=== PATIENT | male | born 1960 | race Caucasian/White ===

== ENCOUNTER 2025-03-31 14:49 | Inpatient (IN) | payer OTHER ==
[2025-03-31 15:23] LABS: MCHC 34.3 g/dl (32.3-36.5); MEAN CELL VOLUME 95.8 fl (79.0-92.2); MEAN PLT VOLUME 9.7 fl (9.4-12.4); RDW 12.7 % (12.2-16.4)
[2025-03-31 15:26] LABS: BG HCT 44.0 % (35.4-49); VENOUS BASE EXCESS -0.1 mmol/L (-2-2); VENOUS O2 SATURATION 57.3 % (70-80); VENOUS PCO2 44.6 mmHg (38-52); VENOUS PH 7.374 (7.310-7.410)
[2025-03-31 15:31] LABS: INR 1.05 (0.83-1.09); PROTHROMBIN TIME (PATIENT) 11.6 SEC (9.7-13.0)
[2025-03-31 15:33] LABS: ACTIVATED PTT 30.5 SECONDS (25.2-36.5)
[2025-03-31] MEDS: ACETAMINOPHEN 1000 MG/100 ML BAG IVPB ONE (15:34)
[2025-03-31 15:46] LABS: CO2 27 mmol/L (21-32); GLUCOSE,RANDOM 152 mg/dL (74-106)
[2025-03-31 15:50] LABS: SGOT/AST 37 U/L (15-37)
[2025-03-31 15:51] LABS: ALK PHOS 131 U/L (45-117); TOT PROT 7.0 g/dl (6.4-8.2)
[2025-03-31] MEDS ORDERED: PIPERACILLIN/TAZOB 3.375 GM 3.375 GM/50 ML BAG IVPB ONE (16:10)
[2025-03-31] MEDS ORDERED: VANCOMYCIN 1 GM PREMIX (F) 1 GM/200 ML BAG ONE (16:10)
[2025-03-31] MEDS: PIPERACILLIN/TAZOB 3.375 GM 3.375 GM in DEXTROSE 5%-WATER - 50 ML IVPB ONE (16:25)
[2025-03-31 16:30] LABS: LACTIC ACID 2.6 mmol/L (0.4-2.0)
[2025-03-31] MEDS ORDERED: AZITHROMYCIN IVPB 500 MG/250 ML BAG IVPB ONE (16:50)
[2025-03-31] MEDS: VANCOMYCIN 1,000 MG in DEXTROSE 5%-WATER - 250 ML IVPB ONE (17:24)
[2025-03-31 18:08] LABS: HCV DIAGNOSTIC IN-HOUSE W/RFLX NON-REACTIVE (NONREACTIVE); HIV INTERPRETATION NEGATIVE (NEGATIVE)
[2025-03-31] MEDS ORDERED: NICARDIPINE 25 MG in DEXTROSE 5%-WATER - 240 ML IVPB SCH (18:30)
[2025-03-31] MEDS: AZITHROMYCIN IVPB 500 MG in DEXTROSE 5%-WATER - 250 ML IVPB ONE (18:31)
[2025-03-31] MEDS: SODIUM CHLORIDE 500 ML IV STA (18:37)
[2025-03-31 18:42] LABS: CREATININE 8.6 mg/dL (0.55-1.3); SGPT/ALT 91 U/L (13-61)
[2025-03-31] MEDS ORDERED: levETIRAcetam 500 MG/5 ML INJECTION VIAL IVPB ONE (19:39)
[2025-03-31] MEDS: levETIRAcetam 500 MG/5 ML INJECTION VIAL IVPB ONE (19:40)
[2025-03-31 20:36] LABS: LACTIC ACID 2.6 mmol/L (0.4-2.0)
[2025-03-31] MEDS: NICARDIPINE 25 MG in DEXTROSE 5%-WATER - 240 ML IVPB SCH (23:00)
[2025-03-31] MEDS: CHLORHEXIDINE GLUCONATE 4% CLEANSER FOR DECOLONIZATION TP SCH (23:18)
[2025-03-31] MEDS: MUPIROCIN 2% TOPICAL OINTMENT FOR DECOLONIZATION NS SCH (23:18)
[2025-03-31] MEDS ORDERED: ACETAMINOPHEN INJECTION 100 ML ONE (23:19)
[2025-04-01 01:28] LABS: CO2 26 mmol/L (21-32); GLUCOSE,RANDOM 133 mg/dL (74-106)
[2025-04-01 01:31] LABS: SGOT/AST 37 U/L (15-37); SGPT/ALT 73 U/L (13-61)
[2025-04-01 01:33] LABS: ALK PHOS 113 U/L (45-117); TOT PROT 6.5 g/dl (6.4-8.2)
[2025-04-01 01:54] LABS: CREATININE 8.7 mg/dL (0.55-1.3)
[2025-04-01 06:35] LABS: ABSOLUTE IMMATURE GRANULOCYTES 0.14 x10^3/uL (0.0-0.031); BASOPHILS # 0.04 x10^3/uL (0.01-0.08); EOSINOPHIL % 0.1 % (0.8-7.0); EOSINOPHILS # 0.01 x10^3/uL (0.04-0.54); MCHC 34.1 g/dl (32.3-36.5); MEAN CELL VOLUME 96.9 fl (79.0-92.2); MEAN PLT VOLUME 9.7 fl (9.4-12.4); MONOCYTE # 1.04 x10^3/uL (0.30-0.82); MONOCYTE % 5.2 % (5.3-12.2); RDW 12.9 % (12.2-16.4)
[2025-04-01 06:53] LABS: CO2 25.0 mmol/L (21-32); GLUCOSE,RANDOM 140.0 mg/dL (74-106)
[2025-04-01 06:56] LABS: SGOT/AST 33.0 U/L (15-37); SGPT/ALT 69.0 U/L (13-61)
[2025-04-01 06:58] LABS: TOT PROT 6.3 g/dl (6.4-8.2)
[2025-04-01 07:00] LABS: ALK PHOS 106.0 U/L (45-117)
[2025-04-01] MEDS: ACETAMINOPHEN 1000 MG/100 ML BAG IVPB ONE (07:13)
[2025-04-01] MEDS ORDERED: PIPERACILLIN/TAZOB 3.375 GM 3.375 GM in DEXTROSE 5%-WATER - 50 ML IVPB SCH ×2 (07:15→10:00)
[2025-04-01 07:23] LABS: CREATININE 9.2 mg/dL (0.55-1.3)
[2025-04-01] MEDS ORDERED: LORazepam 2 MG/ML SDV VIAL ONE (08:48)
[2025-04-01] MEDS: LORazepam 2 MG/ML SDV VIAL IVPUSH ONE (09:00)
[2025-04-01] MEDS: PIPERACILLIN/TAZOB 2.25 GM 2.25 GM in DEXTROSE 5%-WATER - 50 ML IVPB SCH (09:03)
[2025-04-01 09:43] LABS: INR 1.13 (0.83-1.09); PROTHROMBIN TIME (PATIENT) 12.3 SEC (9.7-13.0)
[2025-04-01 09:45] LABS: ACTIVATED PTT 27.7 SECONDS (25.2-36.5)
[2025-04-01] MEDS ORDERED: SODIUM CHLORIDE 250 ML IV PRN (10:13)
[2025-04-01] MEDS: NICARDIPINE 25 MG in DEXTROSE 5%-WATER - 240 ML IVPB SCH (10:15)
[2025-04-01] MEDS: levETIRAcetam 500 MG/5 ML INJECTION VIAL IVPB ONE ×2 (10:52→12:32)
[2025-04-01] MEDS: HEPARIN NA (PORCINE) 5,000 UNITS/ML 1ML VIAL SQ SCH (10:52)
[2025-04-01] MEDS: COLLAGENASE CLOSTRIDIUM HIST. 30 GRAMS TUBE TP SCH (13:23)
[2025-04-01] MEDS: ACETAMINOPHEN 1000 MG/100 ML BAG IVPB PRN (13:24)
[2025-04-01 16:23] LABS: HCV DIAGNOSTIC IN-HOUSE W/RFLX NON-REACTIVE (NONREACTIVE)
[2025-04-01 18:19] LABS: HEPATITIS B SURF AG NON-MATERN NON-REACTIVE (NONREACTIVE)
[2025-04-01 20:56] LABS: ALLENS TEST POSITIVE; ARTERIAL BLD GAS O2 SATURATION 96.3 % (95-98); ARTERIAL BLOOD GAS BASE EXCESS 3.3 mmol/L (-2-2); ARTERIAL BLOOD GAS PCO2 49.80 mmHg (35-45); ARTERIAL BLOOD GAS PO2 86.5 mmHg (80-100); BG HCT 34.0 % (35.4-49)
[2025-04-01 20:57] LABS: VENT MODE A/C; VENT RATE 12
[2025-04-01] MEDS: DEXMEDETOMIDINE PREMIX 400 MCG/100 ML BAG IVPB SCH (21:14)
[2025-04-01 21:49] LABS: ABSOLUTE IMMATURE GRANULOCYTES 0.08 x10^3/uL (0.0-0.031); BASOPHILS # 0.07 x10^3/uL (0.01-0.08); EOSINOPHIL % 0.4 % (0.8-7.0); EOSINOPHILS # 0.07 x10^3/uL (0.04-0.54); MCHC 33.8 g/dl (32.3-36.5); MEAN CELL VOLUME 97.6 fl (79.0-92.2); MEAN PLT VOLUME 9.6 fl (9.4-12.4); MONOCYTE # 1.30 x10^3/uL (0.30-0.82); MONOCYTE % 8.2 % (5.3-12.2); RDW 13.1 % (12.2-16.4)
[2025-04-01] MEDS: levETIRAcetam 500 MG/5 ML INJECTION VIAL IVPB SCH (22:24)
[2025-04-01] MEDS: ATORVASTATIN CA 40 MG TABLET (FP) PEG SCH (22:25)
[2025-04-01] MEDS: CARVEDILOL 6.25 MG TABLET (FP) PEG SCH (22:25)
[2025-04-01 22:42] LABS: CO2 27.0 mmol/L (21-32); GLUCOSE,RANDOM 145.0 mg/dL (74-106)
[2025-04-01 22:45] LABS: SGOT/AST 79.0 U/L (15-37); SGPT/ALT 68.0 U/L (13-61)
[2025-04-01 22:46] LABS: CREATININE 5.5 mg/dL (0.55-1.3)
[2025-04-01 22:47] LABS: TOT PROT 6.7 g/dl (6.4-8.2)
[2025-04-01 22:48] LABS: ALK PHOS 101.0 U/L (45-117)
[2025-04-02] MEDS: SODIUM CHLORIDE FOR INHALATION 3 ML VIAL.NEB IH SCH
[2025-04-02] MEDS ORDERED: NOREPINEPHRINE BITARTRATE 4 MG/4 ML ML IV ONE (00:35)
[2025-04-02] MEDS: NOREPINEPHRINE BITARTRATE 4,000 MCG in DEXTROSE 5%-WATER - 496 ML IV SCH (00:38)
[2025-04-02] MEDS: VANCOMYCIN/WATER FOR INJ (PEG) 1,000 MG/200 ML BAG IVPB ONE (01:51)
[2025-04-02 06:08] LABS: ARTERIAL BLD GAS O2 SATURATION 99.7 % (95-98); ARTERIAL BLOOD GAS BASE EXCESS 1.6 mmol/L (-2-2); ARTERIAL BLOOD GAS PCO2 35.50 mmHg (35-45); ARTERIAL BLOOD GAS PO2 263.8 mmHg (80-100); BG HCT 20.0 % (35.4-49); O2 CONTENT 1.00 % vol
[2025-04-02 06:11] LABS: ALLENS TEST POSITIVE
[2025-04-02 06:12] LABS: VENT MODE A/C; VENT RATE 12
[2025-04-02 06:27] LABS: CO2 27.0 mmol/L (21-32); GLUCOSE,RANDOM 129.0 mg/dL (74-106)
[2025-04-02 06:29] LABS: CREATININE 6.2 mg/dL (0.55-1.3); SGOT/AST 69.0 U/L (15-37); SGPT/ALT 59.0 U/L (13-61)
[2025-04-02 06:31] LABS: TOT PROT 5.5 g/dl (6.4-8.2)
[2025-04-02 06:32] LABS: ALK PHOS 79.0 U/L (45-117)
[2025-04-02 06:46] LABS: ABSOLUTE IMMATURE GRANULOCYTES 0.08 x10^3/uL (0.0-0.031); BASOPHILS # 0.06 x10^3/uL (0.01-0.08); EOSINOPHIL % 0.9 % (0.8-7.0); EOSINOPHILS # 0.14 x10^3/uL (0.04-0.54); MCHC 33.5 g/dl (32.3-36.5); MEAN CELL VOLUME 98.5 fl (79.0-92.2); MEAN PLT VOLUME 9.8 fl (9.4-12.4); MONOCYTE # 1.33 x10^3/uL (0.30-0.82); MONOCYTE % 8.8 % (5.3-12.2); RDW 13.1 % (12.2-16.4)
[2025-04-02] MEDS: MULTIVIT-MINERALS ORAL LIQUID PEG SCH (09:23)
[2025-04-02] MEDS: amLODIPine BESYLATE 10 MG TABLET (FP) PEG SCH (09:24)
[2025-04-02] MEDS: THIAMINE 100 MG TABLET NGT SCH (09:24)
[2025-04-02] MEDS: SODIUM CHLORIDE 1,000 ML IV STA (10:51)
[2025-04-02] MEDS: LACTATED RINGERS SOLUTION 1000 ML INFUS.BAG IV ONE (12:52)
[2025-04-02] MEDS: CARVEDILOL 6.25 MG TABLET (FP) PEG ONE (17:16)
[2025-04-02] MEDS: PIPERACILLIN/TAZOB 2.25 GM 2.25 GM in DEXTROSE 5%-WATER - 50 ML IVPB SCH (17:21)
[2025-04-02] MEDS ORDERED: CARVEDILOL 6.25 MG TABLET (FP) PEG ONE (18:16)
[2025-04-02] MEDS ORDERED: SODIUM CHLORIDE 250 ML IV PRN (19:46)
[2025-04-02] MEDS ORDERED: ACETAMINOPHEN 1000 MG/100 ML BAG IVPB ONE (23:00)
[2025-04-03 06:41] LABS: ABSOLUTE IMMATURE GRANULOCYTES 0.03 x10^3/uL (0.0-0.031); BASOPHILS # 0.06 x10^3/uL (0.01-0.08); EOSINOPHIL % 7.3 % (0.8-7.0); EOSINOPHILS # 0.74 x10^3/uL (0.04-0.54); MCHC 32.8 g/dl (32.3-36.5); MEAN CELL VOLUME 99.6 fl (79.0-92.2); MEAN PLT VOLUME 9.9 fl (9.4-12.4); MONOCYTE # 0.76 x10^3/uL (0.30-0.82); MONOCYTE % 7.5 % (5.3-12.2); RDW 12.7 % (12.2-16.4)
[2025-04-03 07:06] LABS: CO2 25 mmol/L (21-32); GLUCOSE,RANDOM 93 mg/dL (74-106)
[2025-04-03 07:09] LABS: SGPT/ALT 68 U/L (13-61)
[2025-04-03 07:10] LABS: SGOT/AST 80 U/L (15-37)
[2025-04-03 07:11] LABS: TOT PROT 5.1 g/dl (6.4-8.2)
[2025-04-03 07:12] LABS: ALK PHOS 72 U/L (45-117)
[2025-04-03 07:15] LABS: CREATININE 7.6 mg/dL (0.55-1.3)
[2025-04-03 09:33] LABS: IRON SERUM 42 ug/dL (50-175)
[2025-04-03 09:37] LABS: LDH 261 U/L (87-246)
[2025-04-03] MEDS: EPOETIN ALFA-EPBX 3,000 UNIT/ML VIAL SQ ONE (10:40)
[2025-04-03] MEDS: ACETAMINOPHEN 650 MG/20.3 ML ORAL SOLUTION (CUPS) GT PRN (11:40)
[2025-04-03] MEDS ORDERED: ACETYLCYSTEINE 20% 200MG/ML 4 ML VIAL *FOR ORAL / INH USE ONLY ONE (18:02)
[2025-04-03] MEDS ORDERED: ALBUTEROL SO4 0.083% IH SOL 2.5 MG/3 ML VIAL.NEB. NEB ONE (18:03)
[2025-04-03] MEDS: ALBUTEROL SO4 0.083% IH SOL 2.5 MG/3 ML VIAL.NEB. NEB ONE (18:10)
[2025-04-03] MEDS: ACETYLCYSTEINE 20% 200MG/ML 4 ML VIAL *FOR ORAL / INH USE ONLY NEB ONE (18:10)
[2025-04-03] MEDS: levETIRAcetam 500 MG/5 ML INJECTION VIAL IVPB SCH (21:10)
[2025-04-03] MEDS: ALBUTEROL SO4 2.5/IPRATROPIUM 0.5 INH SOL 3 ML VIAL.NEB. NEB PRN (23:25)
[2025-04-03] MEDS: SODIUM CHLORIDE FOR INHALATION 3 ML VIAL.NEB IH PRN (23:27)
[2025-04-04 00:22] LABS: ARTERIAL BLD GAS O2 SATURATION 95.0 % (95-98); ARTERIAL BLOOD GAS BASE EXCESS 3.4 mmol/L (-2-2); ARTERIAL BLOOD GAS PCO2 40.30 mmHg (35-45); ARTERIAL BLOOD GAS PO2 71.2 mmHg (80-100); BG HCT 27.0 % (35.4-49)
[2025-04-04 00:23] LABS: ALLENS TEST POSITIVE
[2025-04-04] MEDS ORDERED: RAPID SEQUENCE INTUBATION KIT NR ONE ×2 (02:57→03:18)
[2025-04-04] MEDS ORDERED: PROPOFOL 1,000,000 MCG/100 ML VIAL ONE (03:01)
[2025-04-04] MEDS: ETOMIDATE 20 MG/10 ML VIAL IVPUSH ONE (03:30)
[2025-04-04] MEDS: ROCURONIUM BROMIDE 50 MG/5 ML VIAL IV ONE ×2 (03:30→20:40)
[2025-04-04] MEDS: PROPOFOL 200 MG/20 ML VIAL IVPUSH ONE (03:30)
[2025-04-04] MEDS: PROPOFOL 1,000,000 MCG/100 ML VIAL IVPB SCH (03:30)
[2025-04-04] MEDS ORDERED: NOREPINEPHRINE BITARTRATE 4 MG/4 ML ML IV ONE (06:31)
[2025-04-04] MEDS: NOREPINEPHRINE BITARTRATE 4,000 MCG in DEXTROSE 5%-WATER - 496 ML IV SCH (06:32)
[2025-04-04 06:53] LABS: ABSOLUTE IMMATURE GRANULOCYTES 0.08 x10^3/uL (0.0-0.031); BASOPHILS # 0.04 x10^3/uL (0.01-0.08); EOSINOPHIL % 1.4 % (0.8-7.0); EOSINOPHILS # 0.18 x10^3/uL (0.04-0.54); MCHC 33.7 g/dl (32.3-36.5); MEAN CELL VOLUME 98.9 fl (79.0-92.2); MEAN PLT VOLUME 9.7 fl (9.4-12.4); MONOCYTE # 0.77 x10^3/uL (0.30-0.82); MONOCYTE % 6.0 % (5.3-12.2); RDW 12.6 % (12.2-16.4)
[2025-04-04 07:00] LABS: ARTERIAL BLD GAS O2 SATURATION 93.6 % (95-98); ARTERIAL BLOOD GAS BASE EXCESS 2.9 mmol/L (-2-2); ARTERIAL BLOOD GAS PCO2 40.70 mmHg (35-45); ARTERIAL BLOOD GAS PO2 65.5 mmHg (80-100); BG HCT 18.0 % (35.4-49)
[2025-04-04 07:01] LABS: VENT MODE A/C; VENT RATE 12
[2025-04-04 07:16] LABS: CO2 28.0 mmol/L (21-32); GLUCOSE,RANDOM 109.0 mg/dL (74-106)
[2025-04-04 07:19] LABS: CREATININE 5.0 mg/dL (0.55-1.3); SGOT/AST 67.0 U/L (15-37); SGPT/ALT 63.0 U/L (13-61)
[2025-04-04 07:20] LABS: TOT PROT 5.3 g/dl (6.4-8.2)
[2025-04-04 07:21] LABS: ALK PHOS 79.0 U/L (45-117)
[2025-04-04] MEDS: SODIUM CHLORIDE NASAL SPRAY 44 ML BOTTLE NS SCH (09:36)
[2025-04-04] MEDS: OXYMETAZOLINE 0.05% NASAL SOLUTION 15 ML BOTTLE NS SCH (09:37)
[2025-04-04 13:58] VITALS: BMI 24.3
[2025-04-04 17:50] LABS: MCHC 33.5 g/dl (32.3-36.5); MEAN CELL VOLUME 99.6 fl (79.0-92.2); MEAN PLT VOLUME 9.9 fl (9.4-12.4); RDW 12.6 % (12.2-16.4)
[2025-04-04 18:07] LABS: INR 1.35 (0.83-1.09); PROTHROMBIN TIME (PATIENT) 14.8 SEC (9.7-13.0)
[2025-04-04 18:11] LABS: ACTIVATED PTT 25.2 SECONDS (25.2-36.5)
[2025-04-04] MEDS: levETIRAcetam 500 MG/5 ML INJECTION VIAL IVPB SCH (20:40)
[2025-04-05 00:13] LABS: MCHC 33.3 g/dl (32.3-36.5); MEAN CELL VOLUME 99.6 fl (79.0-92.2); MEAN PLT VOLUME 9.8 fl (9.4-12.4); RDW 12.7 % (12.2-16.4)
[2025-04-05 07:34] LABS: ABSOLUTE IMMATURE GRANULOCYTES 0.03 x10^3/uL (0.0-0.031); BASOPHILS # 0.06 x10^3/uL (0.01-0.08); EOSINOPHIL % 5.0 % (0.8-7.0); EOSINOPHILS # 0.44 x10^3/uL (0.04-0.54); MCHC 32.6 g/dl (32.3-36.5); MEAN CELL VOLUME 99.6 fl (79.0-92.2); MEAN PLT VOLUME 9.9 fl (9.4-12.4); MONOCYTE # 0.64 x10^3/uL (0.30-0.82); MONOCYTE % 7.3 % (5.3-12.2); RDW 12.6 % (12.2-16.4)
[2025-04-05] MEDS: SODIUM CHLORIDE 250 ML IV PRN (07:45)
[2025-04-05 08:01] LABS: GLUCOSE,RANDOM 129.0 mg/dL (74-106)
[2025-04-05 08:02] LABS: CO2 27.0 mmol/L (21-32)
[2025-04-05 08:04] LABS: CREATININE 6.4 mg/dL (0.55-1.3); SGOT/AST 51.0 U/L (15-37); SGPT/ALT 52.0 U/L (13-61)
[2025-04-05 08:05] LABS: TOT PROT 4.9 g/dl (6.4-8.2)
[2025-04-05 08:06] LABS: ALK PHOS 77.0 U/L (45-117)
[2025-04-05] MEDS: EPOETIN ALFA-EPBX 4,000 UNIT/ML VIAL IVPUSH ONE (10:57)
[2025-04-05] MEDS ORDERED: NOREPINEPHRINE BITARTRATE 4 MG/4 ML ML IV ONE (13:42)
[2025-04-06 06:35] LABS: ABSOLUTE IMMATURE GRANULOCYTES 0.08 x10^3/uL (0.0-0.031); BASOPHILS # 0.04 x10^3/uL (0.01-0.08); EOSINOPHIL % 1.6 % (0.8-7.0); EOSINOPHILS # 0.15 x10^3/uL (0.04-0.54); MCHC 32.9 g/dl (32.3-36.5); MEAN CELL VOLUME 99.1 fl (79.0-92.2); MEAN PLT VOLUME 10.0 fl (9.4-12.4); MONOCYTE # 0.65 x10^3/uL (0.30-0.82); MONOCYTE % 6.9 % (5.3-12.2); RDW 12.8 % (12.2-16.4)
[2025-04-06 07:08] LABS: CO2 30.0 mmol/L (21-32); GLUCOSE,RANDOM 129.0 mg/dL (74-106)
[2025-04-06 07:11] LABS: CREATININE 4.5 mg/dL (0.55-1.3); SGOT/AST 58.0 U/L (15-37); SGPT/ALT 52.0 U/L (13-61)
[2025-04-06 07:12] LABS: TOT PROT 5.3 g/dl (6.4-8.2)
[2025-04-06 07:14] LABS: ALK PHOS 84.0 U/L (45-117)
[2025-04-06] MEDS: ENALAPRILAT DIHYDRATE 1.25 MG/1 ML VIAL IVPB ONE (08:24)
[2025-04-06] MEDS: KCL 10 MEQ IVPB 10 MEQ/100 ML INFUS.BAG IVPB SCH (08:25)
[2025-04-06] MEDS: POTASSIUM CHLORIDE ORAL LIQUID 20 MEQ/15 ML GT ONE (10:37)
[2025-04-06] MEDS: ALBUTEROL SO4 0.083% IH SOL 2.5 MG/3 ML VIAL.NEB. NEB SCH (13:08)
[2025-04-06] MEDS: ACETYLCYSTEINE 20% 200MG/ML 4 ML VIAL *FOR ORAL / INH USE ONLY NEB SCH (13:08)
[2025-04-06] MEDS: FLUDROCORTISONE ACETATE 0.1 MG TABLET (FP) PO SCH (17:14)
[2025-04-06] MEDS: METOPROLOL TARTRATE 5 MG/5 ML VIAL IVPUSH ONE (19:30)
[2025-04-06] MEDS: ACETAMINOPHEN 1000 MG/100 ML BAG IVPB PRN (20:00)
[2025-04-07 06:29] LABS: ABSOLUTE IMMATURE GRANULOCYTES 0.04 x10^3/uL (0.0-0.031); BASOPHILS # 0.03 x10^3/uL (0.01-0.08); EOSINOPHIL % 2.8 % (0.8-7.0); EOSINOPHILS # 0.23 x10^3/uL (0.04-0.54); MCHC 31.7 g/dl (32.3-36.5); MEAN CELL VOLUME 100.9 fl (79.0-92.2); MEAN PLT VOLUME 10.1 fl (9.4-12.4); MONOCYTE # 0.65 x10^3/uL (0.30-0.82); MONOCYTE % 8.0 % (5.3-12.2); RDW 13.0 % (12.2-16.4)
[2025-04-07 06:51] LABS: CO2 28.0 mmol/L (21-32); GLUCOSE,RANDOM 120.0 mg/dL (74-106)
[2025-04-07 06:54] LABS: CREATININE 6.1 mg/dL (0.55-1.3); SGOT/AST 57.0 U/L (15-37); SGPT/ALT 49.0 U/L (13-61)
[2025-04-07 06:56] LABS: TOT PROT 5.0 g/dl (6.4-8.2)
[2025-04-07 06:57] LABS: ALK PHOS 79.0 U/L (45-117)
[2025-04-07 16:49] LABS: MCHC 32.9 g/dl (32.3-36.5); MEAN CELL VOLUME 98.5 fl (79.0-92.2); MEAN PLT VOLUME 9.3 fl (9.4-12.4); RDW 14.6 % (12.2-16.4)
[2025-04-07] MEDS: SODIUM CHLORIDE 1,000 ML IV SCH (21:19)
[2025-04-08 06:31] LABS: ABSOLUTE IMMATURE GRANULOCYTES 0.10 x10^3/uL (0.0-0.031); BASOPHILS # 0.04 x10^3/uL (0.01-0.08); EOSINOPHIL % 3.4 % (0.8-7.0); EOSINOPHILS # 0.29 x10^3/uL (0.04-0.54); MCHC 33.3 g/dl (32.3-36.5); MEAN CELL VOLUME 98.1 fl (79.0-92.2); MEAN PLT VOLUME 9.9 fl (9.4-12.4); MONOCYTE # 0.71 x10^3/uL (0.30-0.82); MONOCYTE % 8.3 % (5.3-12.2); RDW 15.3 % (12.2-16.4)
[2025-04-08 06:46] LABS: INR 1.26 (0.83-1.09); PROTHROMBIN TIME (PATIENT) 13.7 SEC (9.7-13.0)
[2025-04-08 06:49] LABS: ACTIVATED PTT 28.0 SECONDS (25.2-36.5)
[2025-04-08 06:54] LABS: CO2 27.0 mmol/L (21-32)
[2025-04-08 06:55] LABS: GLUCOSE,RANDOM 119.0 mg/dL (74-106)
[2025-04-08 06:57] LABS: SGPT/ALT 63.0 U/L (13-61)
[2025-04-08 06:58] LABS: CREATININE 7.3 mg/dL (0.55-1.3); SGOT/AST 60.0 U/L (15-37)
[2025-04-08 06:59] LABS: TOT PROT 5.0 g/dl (6.4-8.2)
[2025-04-08 07:00] LABS: ALK PHOS 84.0 U/L (45-117)
[2025-04-08] MEDS ORDERED: SODIUM CHLORIDE 250 ML IV PRN (09:00)
[2025-04-08] MEDS: EPOETIN ALFA-EPBX 4,000 UNIT/ML VIAL IVPUSH ONE (10:34)
[2025-04-08] MEDS: PANTOPRAZOLE SODIUM 40 MG VIAL IVPUSH SCH (11:46)
[2025-04-09 06:41] LABS: EOSINOPHIL % 5.2 % (0.8-7.0); EOSINOPHILS # 0.40 x10^3/uL (0.04-0.54); MCHC 32.3 g/dl (32.3-36.5); MEAN CELL VOLUME 98.4 fl (79.0-92.2); MEAN PLT VOLUME 9.9 fl (9.4-12.4); MONOCYTE # 0.73 x10^3/uL (0.30-0.82); MONOCYTE % 9.5 % (5.3-12.2); RDW 14.6 % (12.2-16.4)
[2025-04-09 06:42] LABS: ABSOLUTE IMMATURE GRANULOCYTES 0.11 x10^3/uL (0.0-0.031); BASOPHILS # 0.04 x10^3/uL (0.01-0.08)
[2025-04-09 06:47] LABS: CO2 29.0 mmol/L (21-32); GLUCOSE,RANDOM 103.0 mg/dL (74-106)
[2025-04-09 06:50] LABS: CREATININE 4.5 mg/dL (0.55-1.3)
[2025-04-09 06:51] LABS: SGOT/AST 76.0 U/L (15-37); SGPT/ALT 86.0 U/L (13-61)
[2025-04-09 06:52] LABS: TOT PROT 5.2 g/dl (6.4-8.2)
[2025-04-09 06:53] LABS: ALK PHOS 83.0 U/L (45-117)
[2025-04-09] MEDS: ALBUMIN HUMAN 5% 500 ML IV SOLUTION IV ONE (07:53)
[2025-04-10] MEDS ORDERED: PIPERACILLIN/TAZOBACTAM 2.25 GM VIAL IVPB ONE (01:06)
[2025-04-10 06:44] LABS: ABSOLUTE IMMATURE GRANULOCYTES 0.08 x10^3/uL (0.0-0.031); BASOPHILS # 0.05 x10^3/uL (0.01-0.08); EOSINOPHIL % 5.1 % (0.8-7.0); EOSINOPHILS # 0.38 x10^3/uL (0.04-0.54); MCHC 32.9 g/dl (32.3-36.5); MEAN CELL VOLUME 98.8 fl (79.0-92.2); MEAN PLT VOLUME 9.8 fl (9.4-12.4); MONOCYTE # 0.67 x10^3/uL (0.30-0.82); MONOCYTE % 8.9 % (5.3-12.2); RDW 13.9 % (12.2-16.4)
[2025-04-10 07:05] LABS: CO2 27.0 mmol/L (21-32); GLUCOSE,RANDOM 111.0 mg/dL (74-106)
[2025-04-10 07:08] LABS: CREATININE 5.9 mg/dL (0.55-1.3); SGOT/AST 66.0 U/L (15-37); SGPT/ALT 87.0 U/L (13-61)
[2025-04-10 07:10] LABS: TOT PROT 5.0 g/dl (6.4-8.2)
[2025-04-10 07:11] LABS: ALK PHOS 82.0 U/L (45-117)
[2025-04-10] MEDS ORDERED: EPOETIN ALFA-EPBX 4,000 UNIT/ML VIAL SQ ONE (09:09)
[2025-04-10] MEDS ORDERED: SODIUM CHLORIDE 250 ML IV PRN (09:09)
[2025-04-10] MEDS: EPOETIN ALFA-EPBX 4,000 UNIT/ML VIAL IVPUSH ONE (09:30)
[2025-04-10 16:11] LABS: C-ANCA <1:20 titer (Neg:<1:20)
[2025-04-11 06:13] LABS: ABSOLUTE IMMATURE GRANULOCYTES 0.09 x10^3/uL (0.0-0.031); BASOPHILS # 0.06 x10^3/uL (0.01-0.08); EOSINOPHIL % 3.2 % (0.8-7.0); EOSINOPHILS # 0.28 x10^3/uL (0.04-0.54); MCHC 32.1 g/dl (32.3-36.5); MEAN CELL VOLUME 99.3 fl (79.0-92.2); MEAN PLT VOLUME 9.5 fl (9.4-12.4); MONOCYTE # 0.74 x10^3/uL (0.30-0.82); MONOCYTE % 8.4 % (5.3-12.2); RDW 13.5 % (12.2-16.4)
[2025-04-11 06:54] LABS: CO2 26.0 mmol/L (21-32); GLUCOSE,RANDOM 113.0 mg/dL (74-106)
[2025-04-11 07:08] LABS: ALK PHOS 95.0 U/L (45-117); CREATININE 4.3 mg/dL (0.55-1.3); SGOT/AST 60.0 U/L (15-37); SGPT/ALT 87.0 U/L (13-61); TOT PROT 5.6 g/dl (6.4-8.2)
[2025-04-11] MEDS ORDERED: SODIUM CHLORIDE 250 ML IV PRN (12:18)
[2025-04-12 08:28] LABS: ABSOLUTE IMMATURE GRANULOCYTES 0.10 x10^3/uL (0.0-0.031); BASOPHILS # 0.05 x10^3/uL (0.01-0.08); EOSINOPHIL % 3.1 % (0.8-7.0); EOSINOPHILS # 0.31 x10^3/uL (0.04-0.54); MCHC 32.8 g/dl (32.3-36.5); MEAN CELL VOLUME 98.2 fl (79.0-92.2); MEAN PLT VOLUME 9.7 fl (9.4-12.4); MONOCYTE # 0.58 x10^3/uL (0.30-0.82); MONOCYTE % 5.8 % (5.3-12.2); RDW 13.2 % (12.2-16.4)
[2025-04-12 08:59] LABS: CO2 27.0 mmol/L (21-32)
[2025-04-12 09:01] LABS: GLUCOSE,RANDOM 120.0 mg/dL (74-106)
[2025-04-12 09:02] LABS: SGOT/AST 60.0 U/L (15-37); SGPT/ALT 84.0 U/L (13-61)
[2025-04-12 09:04] LABS: CREATININE 5.9 mg/dL (0.55-1.3); TOT PROT 5.4 g/dl (6.4-8.2)
[2025-04-12 09:05] LABS: ALK PHOS 94.0 U/L (45-117)
[2025-04-12] MEDS: EPOETIN ALFA-EPBX 4,000 UNIT/ML VIAL SQ ONE (11:40)
[2025-04-13 06:21] LABS: MCHC 32.3 g/dl (32.3-36.5); MEAN CELL VOLUME 99.3 fl (79.0-92.2); MEAN PLT VOLUME 9.8 fl (9.4-12.4); RDW 13.3 % (12.2-16.4)
[2025-04-13 06:43] LABS: CO2 31.0 mmol/L (21-32); GLUCOSE,RANDOM 112.0 mg/dL (74-106)
[2025-04-13 06:46] LABS: CREATININE 3.7 mg/dL (0.55-1.3)
[2025-04-14 06:41] LABS: MCHC 33.0 g/dl (32.3-36.5); MEAN CELL VOLUME 98.2 fl (79.0-92.2); MEAN PLT VOLUME 10.1 fl (9.4-12.4); RDW 13.2 % (12.2-16.4)
[2025-04-14] MEDS: NICARDIPINE 25 MG in DEXTROSE 5%-WATER - 240 ML IVPB SCH (06:56)
[2025-04-14 07:04] LABS: ARTERIAL BLD GAS O2 SATURATION 95.4 % (95-98); ARTERIAL BLOOD GAS BASE EXCESS 3.4 mmol/L (-2-2); ARTERIAL BLOOD GAS PCO2 41.40 mmHg (35-45); ARTERIAL BLOOD GAS PO2 74.0 mmHg (80-100); BG HCT 35.0 % (35.4-49)
[2025-04-14 07:13] LABS: ALLENS TEST POSITIVE
[2025-04-14 07:14] LABS: VENT MODE A/C; VENT RATE 12
[2025-04-14 07:30] LABS: CO2 14 mmol/L (21-32)
[2025-04-14 07:31] LABS: GLUCOSE,RANDOM 55 mg/dL (74-106)
[2025-04-14 07:34] LABS: CREATININE 2.7 mg/dL (0.55-1.3)
[2025-04-14] MEDS: CALCIUM GLUCONATE 10% - 1,000 MG/10 ML VIAL IVPUSH ONE (09:30)
[2025-04-14] MEDS: MAGNESIUM SULFATE IN WATER 2 GM/50 ML IVPB IVPB ONE (10:30)
[2025-04-14] MEDS: LOSARTAN POTASSIUM 50 MG TABLET PO SCH (10:30)
[2025-04-14] MEDS: POTASSIUM CHLORIDE ORAL LIQUID 20 MEQ/15 ML PO ONE (10:48)
[2025-04-14] MEDS: ERGOCALCIFEROL 8,000 UNITS/ML DROPSBTL PO SCH (13:20)
[2025-04-14] MEDS ORDERED: SODIUM CHLORIDE 250 ML IV PRN (21:04)
[2025-04-15 06:47] LABS: ABSOLUTE IMMATURE GRANULOCYTES 0.08 x10^3/uL (0.0-0.031); BASOPHILS # 0.05 x10^3/uL (0.01-0.08); EOSINOPHIL % 0.4 % (0.8-7.0); EOSINOPHILS # 0.07 x10^3/uL (0.04-0.54); MCHC 32.5 g/dl (32.3-36.5); MEAN CELL VOLUME 98.7 fl (79.0-92.2); MEAN PLT VOLUME 9.7 fl (9.4-12.4); MONOCYTE # 0.92 x10^3/uL (0.30-0.82); MONOCYTE % 5.8 % (5.3-12.2); RDW 13.5 % (12.2-16.4)
[2025-04-15 07:10] LABS: CO2 24.0 mmol/L (21-32)
[2025-04-15 07:11] LABS: GLUCOSE,RANDOM 126.0 mg/dL (74-106)
[2025-04-15 07:13] LABS: SGOT/AST 43.0 U/L (15-37); SGPT/ALT 60.0 U/L (13-61)
[2025-04-15 07:14] LABS: CREATININE 6.9 mg/dL (0.55-1.3)
[2025-04-15 07:15] LABS: TOT PROT 5.5 g/dl (6.4-8.2)
[2025-04-15 07:16] LABS: ALK PHOS 102.0 U/L (45-117)
[2025-04-15] MEDS: EPOETIN ALFA-EPBX 10,000 UNIT/ML VIAL SQ ONE (11:03)
[2025-04-16 06:50] LABS: ABSOLUTE IMMATURE GRANULOCYTES 0.12 x10^3/uL (0.0-0.031); BASOPHILS # 0.07 x10^3/uL (0.01-0.08); EOSINOPHIL % 0.1 % (0.8-7.0); EOSINOPHILS # 0.02 x10^3/uL (0.04-0.54); MCHC 31.5 g/dl (32.3-36.5); MEAN CELL VOLUME 101.7 fl (79.0-92.2); MEAN PLT VOLUME 9.8 fl (9.4-12.4); MONOCYTE # 1.11 x10^3/uL (0.30-0.82); MONOCYTE % 6.0 % (5.3-12.2); RDW 13.7 % (12.2-16.4)
[2025-04-16 07:10] LABS: CO2 29.0 mmol/L (21-32); GLUCOSE,RANDOM 126.0 mg/dL (74-106)
[2025-04-16 07:13] LABS: CREATININE 4.7 mg/dL (0.55-1.3)
[2025-04-16 07:31] LABS: TOT PROT 5.6 g/dl (6.4-8.2)
[2025-04-16 07:53] LABS: ALK PHOS 136.0 U/L (45-117)
[2025-04-16 07:54] LABS: SGOT/AST 62.0 U/L (15-37); SGPT/ALT 77.0 U/L (13-61)
[2025-04-16] MEDS ORDERED: NOREPINEPHRINE BITARTRATE 4 MG/4 ML ML IV ONE ×2 (08:15→08:20)
[2025-04-16] MEDS: MIDAZOLAM HCL 5 MG/1 ML Single Dose Vial IVPUSH ONE (08:55)
[2025-04-16] MEDS: ROCURONIUM BROMIDE 50 MG/5 ML VIAL IV ONE (08:58)
[2025-04-16] MEDS: NOREPINEPHRINE BITARTRATE 4,000 MCG in DEXTROSE 5%-WATER - 496 ML IV SCH (09:10)
[2025-04-17] MEDS: LACTATED RINGERS SOLUTION 1000 ML INFUS.BAG IV ONE (02:50)
[2025-04-17 07:39] LABS: ABSOLUTE IMMATURE GRANULOCYTES 0.10 x10^3/uL (0.0-0.031); BASOPHILS # 0.08 x10^3/uL (0.01-0.08); EOSINOPHIL % 0.6 % (0.8-7.0); EOSINOPHILS # 0.10 x10^3/uL (0.04-0.54); MCHC 30.6 g/dl (32.3-36.5); MEAN CELL VOLUME 103.8 fl (79.0-92.2); MEAN PLT VOLUME 10.2 fl (9.4-12.4); MONOCYTE # 1.01 x10^3/uL (0.30-0.82); MONOCYTE % 6.4 % (5.3-12.2); RDW 13.6 % (12.2-16.4)
[2025-04-17 07:50] LABS: CO2 26.0 mmol/L (21-32); GLUCOSE,RANDOM 93.0 mg/dL (74-106)
[2025-04-17 07:52] LABS: CREATININE 6.4 mg/dL (0.55-1.3)
[2025-04-17 07:53] LABS: SGOT/AST 65.0 U/L (15-37); SGPT/ALT 70.0 U/L (13-61); TOT PROT 5.2 g/dl (6.4-8.2)
[2025-04-17 07:54] LABS: ALK PHOS 126.0 U/L (45-117)
[2025-04-17] MEDS ORDERED: SODIUM CHLORIDE 250 ML IV PRN ×2 (08:13→20:52)
[2025-04-17] MEDS: EPOETIN ALFA-EPBX 10,000 UNIT/ML VIAL IVPUSH ONE (15:37)
[2025-04-17] MEDS: INSULIN REGULAR HUMAN 100 UNITS/ML *VIAL IVPUSH ONE (16:50)
[2025-04-17] MEDS: DEXTROSE 50%-WATER 25 GM/50 ML DISP.SYRIN IVPUSH ONE (16:50)
[2025-04-17] MEDS ORDERED: SODIUM CHLORIDE FOR INHALATION 3 ML VIAL.NEB IH PRN (20:52)
[2025-04-17] MEDS: ATORVASTATIN CA 40 MG TABLET (FP) PEG SCH (21:31)
[2025-04-17] MEDS: CARVEDILOL 6.25 MG TABLET (FP) PEG SCH (21:31)
[2025-04-17] MEDS: ACETAMINOPHEN 650 MG/20.3 ML ORAL SOLUTION (CUPS) GT PRN (21:32)
[2025-04-17] MEDS: levETIRAcetam 500 MG/5 ML INJECTION VIAL IVPB SCH (21:32)
[2025-04-18] MEDS: PIPERACILLIN/TAZOB 2.25 GM 2.25 GM in DEXTROSE 5%-WATER - 50 ML IVPB SCH (02:25)
[2025-04-18 09:01] LABS: ABSOLUTE IMMATURE GRANULOCYTES 0.09 x10^3/uL (0.0-0.031); BASOPHILS # 0.06 x10^3/uL (0.01-0.08); EOSINOPHIL % 0.7 % (0.8-7.0); EOSINOPHILS # 0.08 x10^3/uL (0.04-0.54); MCHC 31.2 g/dl (32.3-36.5); MEAN CELL VOLUME 102.5 fl (79.0-92.2); MEAN PLT VOLUME 10.0 fl (9.4-12.4); MONOCYTE # 0.99 x10^3/uL (0.30-0.82); MONOCYTE % 8.3 % (5.3-12.2); RDW 13.6 % (12.2-16.4)
[2025-04-18 09:44] LABS: CO2 30.0 mmol/L (21-32); GLUCOSE,RANDOM 103.0 mg/dL (74-106)
[2025-04-18 09:47] LABS: CREATININE 4.4 mg/dL (0.55-1.3)
[2025-04-18 09:48] LABS: SGOT/AST 68.0 U/L (15-37); SGPT/ALT 76.0 U/L (13-61)
[2025-04-18 09:49] LABS: TOT PROT 5.6 g/dl (6.4-8.2)
[2025-04-18 09:50] LABS: ALK PHOS 156.0 U/L (45-117)
[2025-04-18] MEDS: MULTIVIT-MINERALS ORAL LIQUID PEG SCH (10:09)
[2025-04-18] MEDS: amLODIPine BESYLATE 10 MG TABLET (FP) PEG SCH (10:10)
[2025-04-18] MEDS: LOSARTAN POTASSIUM 50 MG TABLET PO SCH (10:10)
[2025-04-18] MEDS: ERGOCALCIFEROL 8,000 UNITS/ML DROPSBTL PO SCH (10:10)
[2025-04-18] MEDS: PANTOPRAZOLE SODIUM 40 MG VIAL IVPUSH SCH (10:11)
[2025-04-18] MEDS: COLLAGENASE CLOSTRIDIUM HIST. 30 GRAMS TUBE TP SCH (10:11)
[2025-04-18] MEDS: THIAMINE 100 MG TABLET NGT SCH (10:11)
[2025-04-19] MEDS ORDERED: SODIUM CHLORIDE 250 ML IV PRN (12:25)
[2025-04-19] MEDS: EPOETIN ALFA-EPBX 10,000 UNIT/ML VIAL SQ ONE (15:39)
[2025-04-20 09:54] LABS: ABSOLUTE IMMATURE GRANULOCYTES 0.12 x10^3/uL (0.0-0.031); BASOPHILS # 0.06 x10^3/uL (0.01-0.08); EOSINOPHIL % 5.7 % (0.8-7.0); EOSINOPHILS # 0.51 x10^3/uL (0.04-0.54); MCHC 31.6 g/dl (32.3-36.5); MEAN CELL VOLUME 101.4 fl (79.0-92.2); MEAN PLT VOLUME 10.0 fl (9.4-12.4); MONOCYTE # 0.64 x10^3/uL (0.30-0.82); MONOCYTE % 7.1 % (5.3-12.2); RDW 13.5 % (12.2-16.4)
[2025-04-21 08:55] VITALS: PULSE 102; TEMP 100.8
[2025-04-21 14:37] VITALS: RESP 20
[2025-04-21 14:53] VITALS: BP 92/42
== END 2025-04-21 16:33 | DRG 4 ==
LOC: JER 14:49 → JERBED 15:06 → JICU 22:04 → J5S 04-17 19:38
PROVIDERS: ADMIT Internal Medicine Pulmonary Disease; ATTEND Internal Medicine
PROC: 5A1945Z Respiratory Ventilation, 24-96 Consecutive Hours (ICD-10-PCS; 2025-04-01)
PROC: 0BH17EZ Insertion of Endotracheal Airway into Trachea, Via Natural or Artificial Opening (ICD-10-PCS; 2025-04-01)
PROC: 03HY32Z Insertion of Monitoring Device into Upper Artery, Percutaneous Approach (ICD-10-PCS; 2025-04-01)
PROC: 4A133B1 Monitoring of Arterial Pressure, Peripheral, Percutaneous Approach (ICD-10-PCS; 2025-04-01)
PROC: 4A133J1 Monitoring of Arterial Pulse, Peripheral, Percutaneous Approach (ICD-10-PCS; 2025-04-01)
PROC: 4A10X4Z Monitoring of Central Nervous Electrical Activity, External Approach (ICD-10-PCS; 2025-04-02)
PROC: 5A1955Z Respiratory Ventilation, Greater than 96 Consecutive Hours (ICD-10-PCS; 2025-04-04)
PROC: 0BH17EZ Insertion of Endotracheal Airway into Trachea, Via Natural or Artificial Opening (ICD-10-PCS; 2025-04-04)
PROC: 03HY32Z Insertion of Monitoring Device into Upper Artery, Percutaneous Approach (ICD-10-PCS; 2025-04-04)
PROC: 4A133B1 Monitoring of Arterial Pressure, Peripheral, Percutaneous Approach (ICD-10-PCS; 2025-04-04)
PROC: 4A133J1 Monitoring of Arterial Pulse, Peripheral, Percutaneous Approach (ICD-10-PCS; 2025-04-04)
PROC: 0BJ08ZZ Inspection of Tracheobronchial Tree, Via Natural or Artificial Opening Endoscopic (ICD-10-PCS; 2025-04-04)
PROC: 30233N1 Transfusion of Nonautologous Red Blood Cells into Peripheral Vein, Percutaneous Approach (ICD-10-PCS; 2025-04-07)
PROC: 4A10X4Z Monitoring of Central Nervous Electrical Activity, External Approach (ICD-10-PCS; 2025-04-08)
PROC: 5A1D70Z Performance of Urinary Filtration, Intermittent, Less than 6 Hours Per Day (ICD-10-PCS; 2025-04-10)
PROC: 0B113F4 Bypass Trachea to Cutaneous with Tracheostomy Device, Percutaneous Approach (ICD-10-PCS; principal; 2025-04-16)
PROC: 0BJ08ZZ Inspection of Tracheobronchial Tree, Via Natural or Artificial Opening Endoscopic (ICD-10-PCS; 2025-04-16)
DX: A41.9 Sepsis, unspecified organism (principal); I62.01 Nontraumatic acute subdural hemorrhage; J69.0 Pneumonitis due to inhalation of food and vomit; N18.6 End stage renal disease; R65.21 Severe sepsis with septic shock; J96.01 Acute respiratory failure with hypoxia; I21.4 Non-ST elevation (NSTEMI) myocardial infarction; I69.354 Hemiplegia and hemiparesis following cerebral infarction affecting left non-dominant side; I12.0 Hypertensive chronic kidney disease with stage 5 chronic kidney disease or end stage renal disease; E87.20 Acidosis, unspecified; J98.11 Atelectasis; Z99.2 Dependence on renal dialysis; E78.5 Hyperlipidemia, unspecified; G93.89 Other specified disorders of brain; D64.9 Anemia, unspecified; R04.0 Epistaxis
CPT/HCPCS: 0241U-QW; 31500; 36415; 36430; 36600; 70450-TC; 71045-TC-FY; 80048; 80053; 80175; 82550; 82553; 82728; 82803; 82962; 83010; 83516; 83520; 83540; 83550; 83605; 83615; 83735; 84100; 84466; 84484; 85025; 85027; 85384; 85610; 85730; 86256; 86704; 86803; 86850; 86900; 86901; 86922; 87040; 87070; 87205; 87340; 87389; 87481; 87517; 93005; 93010; 93306-TC; 94002; 94640; 95816; 97162-GP; 99285-25; G0480; P9058; Q5106

== ENCOUNTER 2025-05-23 11:21 | Inpatient (IN) | payer OTHER ==
[2025-05-23 12:22] LABS: ABSOLUTE IMMATURE GRANULOCYTES 0.18 x10^3/uL (0.0-0.031); BASOPHILS # 0.03 x10^3/uL (0.01-0.08); EOSINOPHIL % 2.4 % (0.8-7.0); EOSINOPHILS # 0.29 x10^3/uL (0.04-0.54); MCHC 30.1 g/dl (32.3-36.5); MEAN CELL VOLUME 103.1 fl (79.0-92.2); MEAN PLT VOLUME 10.0 fl (9.4-12.4); MONOCYTE # 0.75 x10^3/uL (0.30-0.82); MONOCYTE % 6.2 % (5.3-12.2); RDW 14.4 % (12.2-16.4)
[2025-05-23 12:30] LABS: INR 1.23 (0.83-1.09); PROTHROMBIN TIME (PATIENT) 13.4 SEC (9.7-13.0)
[2025-05-23 12:33] LABS: ACTIVATED PTT 30.0 SECONDS (25.2-36.5)
[2025-05-23 12:46] LABS: GLUCOSE,RANDOM 110.0 mg/dL (74-106); TOT PROT 5.6 g/dl (6.4-8.2)
[2025-05-23 12:47] LABS: CO2 28.0 mmol/L (21-32)
[2025-05-23 12:49] LABS: ALK PHOS 259.0 U/L (40-150)
[2025-05-23 12:51] LABS: SGOT/AST 70.0 U/L (5-34); SGPT/ALT 85.0 U/L (0-55)
[2025-05-23 12:52] LABS: CREATININE 3.61 mg/dL (0.55-1.3)
[2025-05-23 13:12] LABS: HCV DIAGNOSTIC IN-HOUSE W/RFLX NON-REACTIVE (NONREACTIVE); HIV INTERPRETATION NEGATIVE (NEGATIVE)
[2025-05-23] MEDS ORDERED: SODIUM CHLORIDE 250 ML IV PRN (15:30)
[2025-05-23 16:22] LABS: HEPATITIS B SURF AG NON-MATERN NON-REACTIVE (NONREACTIVE)
[2025-05-23] MEDS: EPOETIN ALFA-EPBX 10,000 UNIT/ML VIAL IVPUSH ONE (18:13)
[2025-05-23] MEDS ORDERED: ACETAMINOPHEN 325 MG TABLET (FP) PO PRN (18:20)
[2025-05-23] MEDS ORDERED: EPOETIN ALFA 40000 UNIT/ML SQ SCH (18:30)
[2025-05-23 19:54] LABS: HEPATITIS B SURF AG NON-MATERN NON-REACTIVE (NONREACTIVE)
[2025-05-23] MEDS: HEPARIN NA (PORCINE) 5,000 UNITS/ML 1ML VIAL SQ SCH (21:06)
[2025-05-23] MEDS: ATORVASTATIN CA 40 MG TABLET (FP) PEG SCH (21:06)
[2025-05-23] MEDS: CARVEDILOL 6.25 MG TABLET (FP) PEG SCH (21:06)
[2025-05-24 06:37] VITALS: BMI 25.8
[2025-05-24] MEDS: ERGOCALCIFEROL 8,000 UNITS/ML DROPSBTL GT SCH (10:06)
[2025-05-24] MEDS: amLODIPine BESYLATE 10 MG TABLET (FP) PEG SCH (10:07)
[2025-05-24] MEDS: LOSARTAN POTASSIUM 50 MG TABLET PO SCH (10:07)
[2025-05-24] MEDS: MULTIVITAMINS (DAILY MVI) TABLET (FP) PO SCH (10:07)
[2025-05-24 10:51] LABS: ABSOLUTE IMMATURE GRANULOCYTES 0.15 x10^3/uL (0.0-0.031); BASOPHILS # 0.04 x10^3/uL (0.01-0.08); EOSINOPHIL % 1.6 % (0.8-7.0); EOSINOPHILS # 0.16 x10^3/uL (0.04-0.54); MCHC 31.5 g/dl (32.3-36.5); MEAN CELL VOLUME 100.0 fl (79.0-92.2); MEAN PLT VOLUME 10.2 fl (9.4-12.4); MONOCYTE # 0.77 x10^3/uL (0.30-0.82); MONOCYTE % 7.9 % (5.3-12.2); RDW 15.9 % (12.2-16.4)
[2025-05-24 14:40] VITALS: RESP 14
[2025-05-24 15:20] VITALS: BP 125/54; TEMP 98.1
[2025-05-24 15:43] VITALS: PULSE 75
== END 2025-05-24 17:55 | DRG 682 ==
LOC: JER 11:21 → JERBED 14:21 → J5S 19:08
PROVIDERS: ADMIT Internal Medicine; ATTEND Internal Medicine
PROC: 30233N1 Transfusion of Nonautologous Red Blood Cells into Peripheral Vein, Percutaneous Approach (ICD-10-PCS; principal; 2025-05-23)
DX: I12.0 Hypertensive chronic kidney disease with stage 5 chronic kidney disease or end stage renal disease (principal); N18.6 End stage renal disease; I69.354 Hemiplegia and hemiparesis following cerebral infarction affecting left non-dominant side; I25.10 Atherosclerotic heart disease of native coronary artery without angina pectoris; F03.90 Unspecified dementia, unspecified severity, without behavioral disturbance, psychotic disturbance, mood disturbance, and anxiety; D63.1 Anemia in chronic kidney disease; E78.5 Hyperlipidemia, unspecified; G40.909 Epilepsy, unspecified, not intractable, without status epilepticus; Z85.841 Personal history of malignant neoplasm of brain; Z99.2 Dependence on renal dialysis
CPT/HCPCS: 36415; 36430; 71045-TC-FY; 80053; 82272; 82962; 83735; 84100; 84484; 85025; 85610; 85730; 86704; 86803; 86850; 86900; 86901; 86922; 87340; 87389; 87517; 93005; 93010; 99285-25; P9058; Q5106